=== PATIENT | female | born 1980 | race Two or more races ===

== ENCOUNTER 2023-04-24 13:44 | Emergency (ER) | payer OTHER ==
[~2023-04-24] VITALS: Ht 157.5 cm; Wt 73.4 kg
[2023-04-24 16:45] VITALS: BP 105/72; RESP 18; TEMP 97.7; O2SAT 99
[2023-04-24 16:54] VITALS: PULSE 70
[2023-04-24] MEDS ORDERED: BUSP15TA60 PO (16:57)
[2023-04-24] MEDS ORDERED: LORA-655 PO (16:57)
== END 2023-04-24 17:00 | disposition home or self-care (01) ==
LOC: ER 13:44
DX: F43.22 Adjustment disorder with anxiety (principal)
CPT/HCPCS: 93005